=== PATIENT | female | born 1980 | race Caucasian/White ===

== ENCOUNTER 2021-06-16 09:24 | Day surgery (SDC) | payer OTHER, SELFPAY ==
[2021-06-16] VITALS (7 sets, daily range): BP systolic 94–103; BP diastolic 58–71; PULSE 70–82; RESP 16–18; TEMP 36.4–36.6; O2SAT 97–100; BMI 31.6
--- NOTE | ~2021-06-16 | FL_ITS ---
EXAMINATION: FL GUIDED LUMBAR PUNCTURE CLINICAL INFORMATION: Pseudotumor cerebri, headaches. COMPARISON: None TECHNIQUE: Following explaining fluoroscopy-guided lumbar puncture procedure, benefits and risk, a written consent was obtained. Patient was placed prone on fluoroscopy table and low back area was cleaned and draped in usual sterile manner. 1% lidocaine was injected at puncture site. A 22-gauge spinal needle was then advanced from the skin intrathecally in the left paramidline region of the L3-L4 disc level. After observing CSF returned following removal of the stylet, patient was quickly placed in the left lateral decubitus view and opening CSF pressure was obtained. Subsequently fluid was collected in 4 test tubes. Postprocedure stylet was reintroduced and needle withdrawn. Patient tolerated procedure extremely well. FINDINGS: The opening CSF pressure measures 17 cm of water. Clear 11.5 mL of fluid was collected in 4 test tubes. FLUOROSCOPY TIME: 0.5 minutes DOSE AREA PRODUCT: 3.578 uGy-m2 (microgray-meter squared) FL/FL guided lumbar puncture LP IMPRESSION: Successful fluoroscopy-guided L4-L5 lumbar puncture performed without immediate complications.
[2021-06-16 09:57] LABS: UPreg QC Valid YES; Urine Pregnancy NEGATIVE (NEGATIVE)
--- NOTE | 2021-06-16 10:04 | PC.NURSE ---
Patient arrived to [facility] with two pocket knives. Security called and came to bedside. Two knives taken away by security personnel [place].
[2021-06-16 10:09] LABS: MANUAL DIFF FLAG NO
[2021-06-16 10:18] LABS: Basophils Percent Auto 0.5 % (0-2); Eosinophils Absolute Auto 0.3 X10*3/uL (0.0-0.4); Eosinophils Percent Auto 4.6 % (0-4); Hemoglobin 13.1 g/dl (12.0-16.0); Imm Gran Abs Auto 0.02 X10*3/uL (0.00-0.03); Imm Gran Pct Auto 0.3 % (0.0-0.4); Lymphocytes Absolute Auto 1.5 X10*3/uL (1.2-4.9); Lymphocytes Percent Auto 23.7 % (20-40); Mean Corpuscular HGB Conc 33.6 g/dl (31.0-35.0); Mean Corpuscular Hemoglobin 29.2 pg (27.0-33.0); Mean Corpuscular Volume 87.1 fL (80-98); Mean Platelet Volume 9.2 fL (9.4-12.3); Monocytes Absolute Auto 0.4 X10*3/uL (0.1-1.2); Neutrophils Absolute Auto 4.2 X10*3/uL (2.0-8.3); Neutrophils Percent Auto 64.9 % (45-73); Platelet Count 290 X10*3/uL (160-400); Red Blood Count 4.48 X10*6/uL (4.20-5.50); Red Cell Distribution Width 12.1 % (11.0-16.0); White Blood Count 6.5 X10*3/uL (4.8-10.8)
[2021-06-16 10:24] LABS: Prothrombin Time 11.5 SEC (9.9-13.0)
[2021-06-16 10:27] LABS: Partial Thromboplastin Time 27.4 SEC (24.1-38.0)
[2021-06-16 13:16] LABS: CSF Appearance Clear, Colorless
[2021-06-16 13:17] LABS: CSF Tube # 2; Glucose CSF 66 mg/dL; Total Protein CSF 24.4 mg/dL (15-45)
[2021-06-16 13:33] LABS: Appearance CSF CLEAR; CSF Tube # 4; Color CSF COLORLESS; Lymphocytes CSF 100 %; Neutrophils CSF 0 %; Red Blood Cell CSF 2 MM*3; White Blood Cell CSF 2 MM*3
[2021-06-16 13:34] LABS: CSF Monos 0 %; CSF Other Cells % 0 %
== END 2021-06-16 15:02 | disposition home or self-care (01) ==
PROVIDERS: Psychiatry & Neurology Neurology; PCP Internal Medicine; Visit Provider Radiology Diagnostic Radiology
PROC: 009U3ZZ Drainage of Spinal Canal, Percutaneous Approach (ICD-10-PCS; CPT 62270; principal; 2021-06-16 11:00)
DX: G93.2 Benign intracranial hypertension (principal); G43.909 Migraine, unspecified, not intractable, without status migrainosus; Z87.820 Personal history of traumatic brain injury; Z79.1 Long term (current) use of non-steroidal anti-inflammatories (NSAID); Z88.0 Allergy status to penicillin; Z88.2 Allergy status to sulfonamides
CPT/HCPCS: 36415; 62328; 81025; 82945; 84157; 85025; 85610; 85730; 87015; 87070; 87205; 89051